=== PATIENT | male | born 1990 | race Caucasian/White ===

== ENCOUNTER 2024-07-30 01:13 | Emergency (ER) | payer OTHER, SELFPAY ==
[2024-07-30 01:15] VITALS: BP 142/74; PULSE 99; RESP 18; TEMP 36.5; O2SAT 96; BMI 25.7
--- NOTE | 2024-07-30 02:20 | RAD_ITS ---
PROCEDURE: FOOT MIN 3 VIEWS REASON FOR EXAM: Injury. TECHNIQUE: 3 view(s) of the right foot. COMPARISON: None. FINDINGS: RIGHT FOOT: No visible fracture. No suspicious bone lesion. Normal alignment. Soft tissues are unremarkable. RAD/Foot min 3 Views IMPRESSION: No acute osseous abnormality. Reading Location: [id number]
--- NOTE | 2024-07-30 02:20 | RAD_ITS ---
PROCEDURE: ANKLE MIN 3 VIEWS REASON FOR EXAM: Injury. TECHNIQUE: 3 views of the right ankle COMPARISON: None FINDINGS: No visible fracture. No suspicious bone lesion. Normal alignment. Mortise appears intact. No effusion. Mild soft tissue swelling of the ankle. RAD/Ankle min 3 Views IMPRESSION: No acute osseous abnormality. Mild soft tissue swelling. Reading Location: [id number]
--- NOTE | 2024-07-30 02:53 | EX.ED.DYSGE1 ---
HPI History of Present Illness Chief Complaint: Lower Extremity Injury Informant: patient Narrative Narrative: Patient is a 33-year-old male with a past medical history of Hodgkin's lymphoma. He states the other day he stepped out of of his work vehicle in the concrete with on even and he rolled his right ankle inward. He states has had persistent swelling and pain and makes it difficult to ambulate since that time. He has concern for fracture based on the persistent symptoms and therefore comes in for evaluation. [facility] Medical History (Updated 07/30/24 @ 02:[address] Tod Fisher, DO) Hodgkins lymphoma Home Medications ?Medication ?Instructions ?Recorded ?Last Taken ?Type NK 07/30/24 Unknown History Allergy/AdvReac Type Severity Reaction Status Date / Time No Known Allergies Allergy Verified 07/30/24 01:17 Social History Smoking Status: Never smoker ROS ROS ED Constitutional Constitutional ED: Denies chills or fever(s) ENT ENT ED: Denies sore throat Cardiovascular Cardiovascular: Denies chest pain Respiratory/Chest Respiratory/Chest: Denies cough or dyspnea Gastrointestinal Gastrointestinal: Denies abdominal pain, diarrhea, nausea or vomiting Musculoskeletal Musculoskeletal: Reports other Details: Positive right ankle pain and swelling Integumentary Reports other Details: Positive right ankle soft tissue swelling ; Denies Abrasions or rash Neurologic Neurologic: Denies headache(s) or paresthesias Hematologic/Lymphatic Hematologic/Lymphatic: Denies easy bleeding or easy bruising EXAM Physical Exam Const Vital Signs: 07/30/24 01:15 Temperature 97.7 F L Temperature Source Oral Pulse Rate 99 Respiratory Rate 18 Blood Pressure 142/74 H Blood Pressure Mean 96 Pulse Ox 96 Oxygen Delivery Method Room Air Positive well nourished and well developed General Appearance ED: well developed; Negative for pallor HEENT HEENT Narrative: Normocephalic atraumatic Eyes PERRL and EOMs intact bilaterally General Eye ED: Negative for scleral icterus Neck supple Resp normal respiratory effort and clear to auscultation bilaterally Cardio regular rate and regular rhythm Extremity Extremity Narrative: Right lower extremity is neurovascularly intact. Patient has soft tissue swelling along the medial and lateral malleolus. There is no obvious bony deformity or joint effusion. Achilles tendon is intact. There is mild laxity with anterior posterior stressing of the right ankle compared to left concerning for grade 2 ankle sprain to the tibial talar and fibular talar ligaments. Negative Homans' sign bilaterally Remainder of the exam is normal Neuro oriented x3, CN's II-XII intact bilaterally and no sensory deficits noted Sensorium / Orientation: alert Psych mental status grossly normal Skin no rashes or lesions noted and no wounds Skin Narrative: Soft tissue swelling to the right ankle as documented above General Skin Exam: Negative for jaundice or pallor MDM MDM MDM Narrative Medical decision making narrative: Patient presented to the ER with report of mechanical injury to his right ankle. Patient reported a inversion injury and he does have soft tissue swelling to therefore there is concern for ankle sprain versus fracture. Secondary to his imaging of the ankle and foot were obtained. X-rays showed no acute fracture or dislocation. By exam he has asymmetric laxity of the right ankle compared to left indicating a grade 2 ankle sprain. However he is closed and neurovascularly intact and therefore there is no need for emergent podiatry/orthopedic consultation. Patient be placed in a walking boot for stabilization and can follow-up with podiatry on an outpatient basis History & Record Review Discussion w/independent historian: Patient Radiography Diagnostic Testing: Clinical Impression(s) from Imaging Studies Ankle X-Ray 07/30/24 02:20 IMPRESSION: No acute osseous abnormality. Mild soft tissue swelling. Reading Location: [facility] Foot X-Ray 07/30/24 02:20 IMPRESSION: No acute osseous abnormality. Reading Location: [facility] X-ray of the right ankle and right foot as interpreted by the emergency medicine physician reveals no acute fracture dislocation or joint effusion Discharge Plan Triage Chief Complaint: Lower Extremity Injury ED Provider: Tod Fisher Dx/Rx/DC Orders Clinical Impression: Grade 2 ankle sprain Instructions: ED Ankle Sprain (Adult) Prescriptions: No Action NK Primary Care Provider: Arsenio Giron Referrals: Marc Palencia DPM [Med Staff - Active Staff] - Arsenio Giron MD [Primary Care Provider] - Activity Restrictions/Additional Instructions: Please wear the walking boot while up and ambulating as your exam indicates a grade 2 ankle sprain and this will help with stabilization and healing. Continue with Tylenol and/or Motrin for pain control. Follow-up with your family doctor or podiatry to discuss potential MRI for a better picture of your ligaments and tendons. It will typically take 2 to 4 weeks for your grade 2 sprain to heal. Return to the ER should you have any further concerns Print Language: Azerbaijani Disposition Disposition: Home, Self Care Discharge Date/Time: 07/30/24 03:42
--- NOTE | 2024-08-12 07:42 | ED.RN ---
Pt called and needs Dr Fisher to do a work ability form. Because he did not have the form to be on light duty for 2 weeks, workers comp denied his claim.
== END 2024-07-30 03:42 | disposition home or self-care (01) ==
PROVIDERS: Emergency Provider Emergency Medicine; PCP Family Medicine; Visit Provider Emergency Medicine
DX: S93.401A Sprain of unspecified ligament of right ankle, initial encounter (principal); X50.1XXA Overexertion from prolonged static or awkward postures, initial encounter; Y99.0 Civilian activity done for income or pay; Y92.818 Other transport vehicle as the place of occurrence of the external cause
CPT/HCPCS: 73610; 73630; 99283